=== PATIENT | female | born 1950 | race Caucasian/White ===

== ENCOUNTER → 2023-09-20 08:22 | Outpatient (REF) | payer MEDICARE, OTHER, SELFPAY | LOC: HWRAD 08:22 | PROVIDERS: ATTENDING PHYSICIAN Otolaryngology | DX: J33.8 Other polyp of sinus (principal) | CPT/HCPCS: 70486 ==

== ENCOUNTER → 2024-01-13 15:15 | Outpatient (REF) | payer MEDICARE, OTHER, SELFPAY | LOC: WDC 15:15 | PROVIDERS: ATTENDING PHYSICIAN Family Medicine | DX: R92.8 Other abnormal and inconclusive findings on diagnostic imaging of breast (principal) | CPT/HCPCS: 77062; 77066 ==

== ENCOUNTER 2024-02-26 19:35 | Emergency (ER) | payer MEDICARE, OTHER, SELFPAY ==
[2024-02-26 19:36] VITALS: BP 174/91
--- NOTE | 2024-02-26 20:19 | ED.GENMED ---
History of Present Illness
General
Chief Complaint: Head Injury
Source: patient
Time Seen by Provider: 02/26/24 20:11
History of Present Illness
History of Present Illness:
73-year-old female presenting to the emergency department for evaluation after she excellently tripped and fell striking the back of her head on a wooden floor. Injury occurred around 7 PM. Since that time patient states she noticed a bump on the
back of her head but otherwise feels okay with a slight headache. No reported loss consciousness, vomiting, vision changes, focal weakness or numbness, extremity related injuries or any other concerns. Denies any use of anticoagulants. Patient
states that when she fell and hit her head she also felt pain along the right side of her jaw but this resolved very quickly. She did not take anything for him's prior to arrival. No other concerns and denies any history of head injuries in the
past.
Past History
Past History
ED Past Medical History: Valvular disease and Other
ED Past Surgical History: Cardiac, Cholecystectomy and Gynecological
Social History
Tobacco: Non-smoker
Alcohol: None
Drug: None
Personal:
Living: with family
Review of Systems
Review of Systems
All Other Systems: ROS reviewed and negative except as documented in HPI and ROS
Phy Exam
Physical Exam
Physical Exam:
GENERAL: Alert , in no apparent distress
EYE: conjunctiva clear, pupils 3mm bilateral, PERRL
Head: small contusion right occipitoparietal region, no breaks in skin
NECK: Supple, no midline ttp
ENT: mmm.
LUNGS: no acute respiratory distress
NEUROLOGICAL: Alert and oriented x 3. ambulates with steady gait
SKIN: Warm and dry, skin intact.
MUSCULOSKELETAL: well perfused. FROM
PSYCH: Normal and appropriate interaction.
Scores
Heart Failure Risk
Heart Failure Risk Score: Not Applicable
Heart Score for Chest Pain Patients
STEMI patient?: Not applicable
Withdrawal Assessment of Alcohol
Withdrawal Assessment Completed?: Not applicable
Course
Vital Signs
Initial and Last Documented VS:
Initial Vital Signs
Temp Pulse Resp BP Pulse Ox
97.8 F 72 20 174/91 99
02/26/24 19:36 02/26/24 19:36 02/26/24 19:36 02/26/24 19:36 02/26/24 19:36
Last Documented Vital Signs
Temp Pulse Resp BP Pulse Ox
97.8 F 72 20 174/91 99
02/26/24 19:36 02/26/24 19:36 02/26/24 19:36 02/26/24 19:36 02/26/24 19:36
MDM/Problems Addressed
Differential Diagnosis Includes:
Contusion, concussion, intracranial bleed
MDM/Problems Addressed:
73-year-old female presenting to the emergency department for evaluation after head injury occurring about an hour and a half prior to arrival to the ER. Patient noting small contusion. No loss consciousness, vomiting and no use of anticoagulants.
Discussed CT imaging with patient and but patient ultimately declines this test stating she does not want to do any unnecessary testing. Discussed that the CT would show possible intracranial bleeding or calvarial fracture. Patient again
declines CT. Discussed return precautions to the ER including worsening headache, vomiting, change in mental status. Both patient and expressed understanding. Patient is otherwise stable for discharge home and aware of return precautions.
*Pulse Oximetry
Patient hypoxic: no
*Critical Care Note
Total Time (30-74mins, 75-104mins- exclusive of procedures): Not Applicable
Data Reviewed
Further Testing Considered But Not Given:
CT offered however patient declines
ED Attending Note
-
Portions of this chart may have been created with voice recognition software.� Occasional wrong word or��sound alike� substitutions may have occurred due to the inherent limitations of voice recognition software.
Discharge Plan
Departure
Patient Disposition: Home (Routine Discharge)
Date of Disposition: 02/26/24
Time of Disposition: 20:19
Patient with high blood pressure during this ER visit?: No
Discharge Problem:
Head injury
Instructions: Concussion, Adult (DC), Head Injury in Adults (DC)
Interventions
Interventions:
*Risk Screen - Suicide Last Done: 02/26/24 19:36
*General Assessment Last Done: 02/26/24 19:36
*Neglect/Abuse Screening Last Done: 02/26/24 19:36
ED- Neurological Assessment Last Done: 02/26/24 20:22
ED-Skin Assessment Last Done: 02/26/24 20:22
Discharge Date and Time
Print Language: GIBRALTARIAN
== END 2024-02-26 20:46 | disposition home or self-care (01) ==
LOC: EMR 19:35
PROVIDERS: EMERGENCY PHYSICIAN Emergency Medicine; FAMILY PHYSICIAN Family Medicine
DX: S09.90XA Unspecified injury of head, initial encounter (principal); W01.0XXA Fall on same level from slipping, tripping and stumbling without subsequent striking against object, initial encounter; I38 Endocarditis, valve unspecified; Z90.49 Acquired absence of other specified parts of digestive tract
CPT/HCPCS: 99282

== ENCOUNTER → 2024-03-07 14:11 | Outpatient (REF) | payer MEDICARE, OTHER, SELFPAY | LOC: HWRAD 14:11 | PROVIDERS: ATTENDING PHYSICIAN Family Medicine | DX: R05.3 Chronic cough (principal) | CPT/HCPCS: 71046 ==

== ENCOUNTER → 2024-08-14 09:34 | Outpatient (REF) | payer MEDICARE, OTHER, SELFPAY | LOC: MRI 3T 09:34 | PROVIDERS: ATTENDING PHYSICIAN Surgery; FAMILY PHYSICIAN Family Medicine | DX: Z15.09 Genetic susceptibility to other malignant neoplasm (principal) | CPT/HCPCS: 77049; A9585 ==

== ENCOUNTER 2024-12-31 10:48 | Emergency (ER) | payer MEDICARE, OTHER, SELFPAY ==
[2024-12-31 10:54] VITALS: BP 114/74
[2024-12-31 12:05] VITALS: BMI 20.6
--- NOTE | 2024-12-31 12:20 | ED.GENMED ---
History of Present Illness
General
Chief Complaint: Musculo-Skeletal Complaint
Source: patient
Exam Limitations: none
Time Seen by Provider: 12/31/24 12:02
History of Present Illness
History of Present Illness:
Patient is a 74-year-old female presents to the ER complaining of left ankle lower leg pain and right knee abrasion. Yesterday she tripped on uneven sidewalk and rolled her left ankle. She has pain with ambulation. She complains of swelling to
the left foot ankle and lower leg. She also complains of abrasion to right lower leg but denies any right leg pain. She is able to bear some weight with discomfort to the left ankle.
No head injury no neck pain denies any headache. She last took Motrin yesterday. She does not want any Motrin presently because she did not eat yet.
Past History
Past History
ED Past Medical History: Valvular disease and Other
ED Past Surgical History: Cardiac, Cholecystectomy and Gynecological
Social History
Tobacco: Non-smoker
Alcohol: None
Drug: None
Personal:
Living: with family
Phy Exam
General Physical Exam
General Presentation: no apparent distress
General age: appears stated age
General Skin: warm and dry
General Habitus: normal
General Mental: alert
Neurological Exam
Neurological Exam: alert and oriented x3
Musculoskeletal Exam
Musculoskeletal Exam: other (Right anterior lower leg with some abrasion; LLE with + swelling tenderness to left lateral foot/+ left lateral malleolus and prox tib strong b/l pulses )
Skin Exam
Skin Exam: normal color and warm/dry
Psychiatric Exam
Psychiatric Exam: normal mood/affect
Course
Orders/Labs/Results
Orders:
Orders
12/31/24 10:49
Ankle, left 3 view CR [CR Ankle - Left Min 3 Views ] Urgent
Comment:
Reason For Exam: pain injury
12/31/24 12:19
Foot, Left 3 View [CR Foot - Left Min 3 Views] Urgent
Comment:
Reason For Exam: trauma
Tib/Fib, Left 2 View [CR Leg Tibia/fibula Left 2 Vw] Urgent
Comment:
Reason For Exam: trauma
Vital Signs
Initial and Last Documented VS:
Initial Vital Signs
Temp Pulse Resp BP Pulse Ox
98 F 60 16 114/74 100
12/31/24 10:54 12/31/24 10:54 12/31/24 10:54 12/31/24 10:54 12/31/24 10:54
Last Documented Vital Signs
Temp Pulse Resp BP Pulse Ox
98 F 65 16 143/63 100
12/31/24 10:54 12/31/24 13:35 12/31/24 13:35 12/31/24 13:35 12/31/24 13:35
MDM/Problems Addressed
Differential Diagnosis Includes:
Not limited sprain strain fracture, contusion
MDM/Problems Addressed:
Patient rolled her ankle complains of pain to the left lower leg foot and ankle. Patient does have an avulsion fracture of the anterior talus with overlying soft tissue swelling. Case reviewed with podiatry on-call who does recommend short leg
boot. Patient incidentally does have her own color artist Dr. Seymour who she would like to follow-up with. Will copy disc and give that to patient for outpatient follow-up discussed close outpatient follow-up with her color artist and elevation and
use of boot.
*Radiology
Radiology exam reviewed: radiology read reviewed
*Pulse Oximetry
SaO2: 100
Oxygen Mode of Delivery: Room air
Patient hypoxic: no
*Critical Care Note
Total Time (30-74mins, 75-104mins- exclusive of procedures): Not Applicable
ED Attending Note
-
Portions of this chart may have been created with voice recognition software.� Occasional wrong word or��sound alike� substitutions may have occurred due to the inherent limitations of voice recognition software.
Discharge Plan
Departure
Patient Disposition: Home (Routine Discharge)
Date of Disposition: 12/31/24
Time of Disposition: 14:39
Patient with high blood pressure during this ER visit?: Yes
Condition: Fair
Covid-19: Not Applicable
Discharge Problem:
Foot fracture, left
Instructions: Foot Fracture ED
Referrals:
Wanda Seymour DPM [Active, Podiatry]
Samaria Ibarra MD [Family Provider, Family Practice]
Activity Restrictions/Additional Instructions:
As discussed keep elevate is much as possible and wear boot for support with ambulation. Call your color artist tomorrow for an appointment as soon as possible return if any worsening of symptoms
Interventions
Interventions:
*Risk Screen - Suicide Last Done: 12/31/24 10:56
*General Assessment Last Done: 12/31/24 12:05
*Neglect/Abuse Screening Last Done: 12/31/24 10:56
*ED- Fall Risk Assessment Last Done: 12/31/24 12:05
*ED COVID-19 Vaccine History Last Done: 12/31/24 12:05
ED-Musculoskeletal Assessment Last Done: 12/31/24 12:08
Discharge Date and Time
Print Language: UZBEK
[2024-12-31 12:36] VITALS: BP 142/83
[2024-12-31 13:35] VITALS: BP 143/63
== END 2024-12-31 15:42 | disposition home or self-care (01) ==
LOC: EMR 10:48
PROVIDERS: EMERGENCY PHYSICIAN Emergency Medicine; FAMILY PHYSICIAN Family Medicine
DX: S92.902A Unspecified fracture of left foot, initial encounter for closed fracture (principal); S80.211A Abrasion, right knee, initial encounter; W18.41XA Slipping, tripping and stumbling without falling due to stepping on object, initial encounter; Z90.49 Acquired absence of other specified parts of digestive tract
CPT/HCPCS: 99283; 73590; 73610; 73630

== ENCOUNTER 2025-01-04 16:00 | Emergency (ER) | payer MEDICARE, OTHER, SELFPAY ==
[2025-01-04 16:04] VITALS: BP 170/99
[2025-01-04 16:49] VITALS: BMI 21.2
--- NOTE | 2025-01-04 17:09 | ED.MUSCINJ ---
HPI-Injury
General
Chief Complaint: Musculo-Skeletal Complaint
Source: patient, records and spouse
Exam Limitations: none
Time Seen by Provider: 01/04/25 16:51
Nursing documentation reviewed up to this point in time: agreed with
History of Present Illness-Injury
Is this injury a work related problem?: No
Is pt an associate of [facility]?: No
Initial Injury comments:
74-year-old female slip and fall she is wearing a boot for a foot fracture slipped left elbow hit the ground she felt pain in her left wrist, no numbness or tingling pain is moderate worse with movement better with rest, no headache no neck pain, no
blood thinners she is following up with reporter for her foot fracture,
Past History
Past History
ED Past Medical History: Valvular disease and Other
ED Past Surgical History: Cardiac, Cholecystectomy and Gynecological
Social History
Tobacco: Non-smoker
Alcohol: None
Drug: None
Personal:
Living: with family
Employment: Retired
Review of Systems
Review of Systems
All Other Systems: Not applicable
Respiratory: Reports no symptoms
Cardiac: Reports no symptoms
ABD/GI: Reports no symptoms
Musculoskeletal: Reports joint pain; Denies neck pain
Neurological: Denies dizzy or headache
Hematologic/Lymphatic: Reports no symptoms
Phy Exam
Physical Exam
Physical Exam:
Physical Exam
General: no apparent distress, not acutely ill
Neck: No tongue bite no posterior neck pain no bruising about the head or neck
Lungs: no acute respiratory distress.
Neuro: alert and oriented. no focal neurological deficits
Skin: no rash
Psychiatric: well kept. interactive and cooperative
Extremities: Tender to the left wrist, minimal deformity strong radial pulse no tenderness over the elbow
Injury Course
Orders/Labs/Results
Orders:
Orders
01/04/25 16:06
Forearm, Left 2 View [CR Forearm - Left 2 View] Urgent
Comment:
Reason For Exam: injury
Wrist, Left 3 Views CR [CR Wrist - Left Min 3 Views] Urgent
Comment:
Reason For Exam: injury
01/04/25 17:04
Sling Left-Treatment ONCE
Splints/Slings/Crut- Treatment ONCE
Oxycodone/Acetaminophen [Percocet 5/325] 1 tablet PO NOW STA
MDM/Problems Addressed
Differential Diagnosis Includes:
Fracture strain contusion slip and fall mechanism
MDM/Problems Addressed:
Slip and fall over her boot fracture left wrist
*Radiology
Radiology exam reviewed: preliminary read by ED provider
*Pulse Oximetry
SaO2: 100
Oxygen Mode of Delivery: Room air
Patient hypoxic: no
*Critical Care Note
Total Time (30-74mins, 75-104mins- exclusive of procedures): Not Applicable
Update Note
Update Note:
Will mobilize her wrist, minimally displaced at this time, analgesia ice follow-up orthopedics may require operative repair
ED Attending Note
-
Portions of this chart may have been created with voice recognition software.� Occasional wrong word or��sound alike� substitutions may have occurred due to the inherent limitations of voice recognition software.
Discharge Plan
Departure
Patient Disposition: Home (Routine Discharge)
Date of Disposition: 01/04/25
Time of Disposition: 17:05
Patient with high blood pressure during this ER visit?: No
Condition: Good
Discharge Problem:
Fracture of wrist
Instructions: Splint Care
Prescriptions:
New
oxycodone-acetaminophen [Percocet] 5-325 mg tablet
1 tab PO Q6HPRN PRN (Reason: pain) Qty: 20 0RF
ibuprofen 600 mg tablet
600 mg PO Q8H PRN (Reason: Pain) Qty: 20 0RF
Referrals:
Tony Mcintosh MD [Active, Orthopedics] - Next open appointment
Activity Restrictions/Additional Instructions:
Use splint and sling, call [facility] orth[facility]ics first thing in the morning to arrange follow-up
Interventions
Interventions:
*Risk Screen - Suicide Last Done: 01/04/25 16:04
*General Assessment Last Done: 01/04/25 16:04
*Neglect/Abuse Screening Last Done: 01/04/25 16:04
ED-Musculoskeletal Assessment Last Done: 01/04/25 16:49
Discharge Date and Time
Print Language: CROATIAN
[2025-01-04] MEDS: PERCOCET 5/325 1 TABLET PO (17:20)
[2025-01-04 18:42] VITALS: BP 149/91
--- NOTE | 2025-01-04 18:43 | EDRN ---
Reviewed discharge with patient and her . Verbalized understanding. Taken to lobby in wheelchair.
== END 2025-01-04 18:43 | disposition home or self-care (01) ==
LOC: EMR 16:00
PROVIDERS: EMERGENCY PHYSICIAN Emergency Medicine; FAMILY PHYSICIAN Family Medicine
DX: S52.502A Unspecified fracture of the lower end of left radius, initial encounter for closed fracture (principal); S52.692A Other fracture of lower end of left ulna, initial encounter for closed fracture; W01.0XXA Fall on same level from slipping, tripping and stumbling without subsequent striking against object, initial encounter
CPT/HCPCS: 29125; 99283; 73090; 73110

== ENCOUNTER → 2025-05-07 10:31 | Outpatient (REF) | payer MEDICARE, OTHER, SELFPAY | LOC: WDC 10:31 | PROVIDERS: ATTENDING PHYSICIAN Nurse Practitioner Adult Health; FAMILY PHYSICIAN Family Medicine | DX: Z12.31 Encounter for screening mammogram for malignant neoplasm of breast (principal) | CPT/HCPCS: 77063; 77067 ==